=== PATIENT | male | born 1935 | race Caucasian/White ===

== ENCOUNTER → 2017-08-17 | Outpatient (CLI) | payer MEDICARE, OTHER ==
--- NOTE | 2017-08-17 16:35 | RAD ---
History: Vertebral height loss. Comparison: October 16, 2008. Findings: Bone Densitometry was performed with dual photon absorption of the lumbar spine and proximal right femur. Lumbar Spine: Bone density is 1.705 g/cm2 for L1-L4. T-Score is 4.0. Z-score is 4.7. Bone mineral density of lumbar spine demonstrates 2.7% decrease from previous study. Levoconvex scoliosis of the lumbar spine is seen. Total of proximal right femur: Bone density is 1.290 g/cm2. T-Score is 1.3. Z-score is 2.5. Bone mineral density of the proximal right femur demonstrates 8.3% decrease from previous study. Right femoral neck: Bone density is 1.190 g/cm2. T-Score is 0.9. Z-score is 2.5. IMPRESSION: 1. Bone mineral density of the lumbar spine and the proximal right femur appears within normal limits. 2. Levoconvex scoliosis of the lumbar spine. World Health definition of osteoporosis and osteopenia: Normal = T-Score at or above -1.0; osteopenia = T-score between -1.0 and -2.5; osteoporosis = T-score at or below -2.5 Electronically signed by: Tyson Velazco MD (08/17/2017 4:31 PM) [place] [id number]
== END | disposition home or self-care (01) ==
LOC: DXRAD 12:19
PROVIDERS: ATTEND Specialist
DX: M81.0 Age-related osteoporosis without current pathological fracture (principal); M41.86 Other forms of scoliosis, lumbar region
CPT/HCPCS: 77080